=== PATIENT | female | born 1975 | race Caucasian/White ===

== ENCOUNTER 2019-06-10 09:14 | Day surgery (SDC) | payer OTHER ==
[2019-06-10] MEDS ORDERED: LIDOCAINE 4% SOLUTION 50 ML BTL (10:06)
[2019-06-10] MEDS ORDERED: FENTAnyl 50 MCG/ML VIAL (10:46)
[2019-06-10] MEDS ORDERED: MIDAZOLAM 1 MG/ML 2 ML INJ ×2 (10:46)
== END 2019-06-10 12:35 | disposition home or self-care (01) ==
LOC: GIL 09:14
DX: Z12.11 Encounter for screening for malignant neoplasm of colon (principal); K64.4 Residual hemorrhoidal skin tags; K57.30 Diverticulosis of large intestine without perforation or abscess without bleeding; K29.00 Acute gastritis without bleeding
CPT/HCPCS: 43235; 84703; 88305; 88312